=== PATIENT | male | born 1990 | race Caucasian/White ===

== ENCOUNTER → 2019-09-18 | Outpatient (CLI) | payer OTHER ==
[~2019-09-18] MED LIST: AMIT10TA PO; BUPIVACAINE MPF 0.25% 10 ML VIAL. ONE; ELET20TA PO; INFL100V IV; LAMO25TA9 PO; PROP10TA PO; methylPREDNISolone ACETATE 40 MG/ML VIAL. ONE
[2019-09-18 10:54] VITALS: BP 109/79
== END ==
LOC: SURG 09:31
PROVIDERS: ATTEND Anesthesiology Pain Medicine
DX: M54.81 Occipital neuralgia (principal); Z98.890 Other specified postprocedural states
CPT/HCPCS: 64405; J1030; J3490